=== PATIENT | male | born 1985 | race Two or more races ===

== ENCOUNTER 2020-06-13 07:48 | Emergency (ER) | payer MEDICAID, SELFPAY ==
[2020-06-13 07:49] VITALS: BP 123/92; PULSE 108; RESP 16; TEMP 36.8; O2SAT 98; BMI 26.6
--- NOTE | 2020-06-13 08:29 | ED_ITS ---
HPI - Abdominal Pain General Chief Complaint: Abdominal Pain Stated Complaint: abd pain Time Seen by Provider: 06/13/20 08:25 Source: patient Mode of arrival: ambulatory Limitations: no limitations History of Present Illness HPI narrative: 34-year-old male previously healthy here with epigastric pain and burning with associated belching which occurred after eating for the last month. Patient tells me he often eats late at night before going to bed. He puts hot sauce on everything. Next to his bed he normally has 2-3 bags of snacks for in the night when he wakes up and he is hungry. He smokes cigarettes. He drinks alcohol 5-6 times per week. Today he had some nausea when he woke up and he tells me he gagged some blood-streaked emesis, small amount. No additional episodes. This has never happened to him before. He denies any bloody or black stools. MD elicited complaint: abdominal pain Onset (ago): month(s) Pain Consistency: intermittent Location: epigastric Severity: mild Quality: burning Radiation: none Migration to: no migration Exacerbating factors: nothing Relieving factors: nothing Associated symptoms: denies other symptoms Related Data Previous Rx's Medication Instructions Recorded omeprazole 40 mg PO DAILY #30 cap 06/13/20 Allergies Allergy/AdvReac Type Severity Reaction Status Date / Time No Known Allergies Allergy Unverified 02/19/20 15:39 Review of Systems Review of Systems Yes all other systems are reviewed and are negative Constitutional: Reports no additional constitutional complaints, Denies body ache(s), Denies chills, Denies fever(s), Denies headache(s) and Denies weakness Eyes: Reports no additional eye complaints and Denies change in vision Reports system reviewed and no additional complaints, except as documented, Denies dizziness, Denies headache(s), Denies nasal congestion, Denies nasal discharge and Denies neck pain Cardiovascular: Reports no additional cardiovascular complaints, Denies chest pain, Denies leg edema and Denies dyspnea Respiratory: Reports no additional respiratory complaints, Denies cough and Denies dyspnea Gastrointestinal: Reports no additional gastrointestinal complaints, Reports abdominal pain, Reports belching, Denies hematochezia, Denies coffee ground emesis, Denies diarrhea, Reports nausea (x1) and Reports vomiting (x1) Genitourinary: Denies urinary incontinence Musculoskeletal: Reports no additional musculoskeletal complaints, Denies back pain, Denies arthralgias, Denies joint swelling, Denies neck pain, Denies numbness and Denies tingling Skin/Breast: Reports system reviewed and no additional complaints, except as docu and Denies rash Reports system reviewed and no additional complaints, except as documented, Denies Abnormal speech present, Denies dizziness, Denies headache(s), Denies numbness, Denies tingling and Denies weakness Physical Exam Vital Signs: Vital Signs: Last Vital Signs Temp 98.2 F 06/13/20 07:49 Pulse 108 H 06/13/20 07:49 Resp 16 06/13/20 07:49 BP 123/92 H 06/13/20 07:49 Pulse Ox 98 06/13/20 07:49 Body Mass Index 26.6 Const: General: cooperative, healthy appearing, comfortable and no acute distress Orientation/consciousness: patient oriented x3 Limitations: no limitations HENMT: Head: Yes normal to inspection Ears: hearing grossly normal bilaterally General nose exam: Normal external nose present Face and sinus: Yes normal facial exam Mouth: Normal oral and palatal mucosa present Throat: Yes posterior oropharynx normal Eyes: General: appearance normal, both eyes and all related structures Pupils: Equal, round and reactive pupils present Neck: Neck: Yes normal visual inspection Chest: Chest palpation & inspection: normal inspection of the chest Resp: Effort & Inspection: normal respiratory effort Auscultation: clear to auscultation bilaterally Cardio: Rate: regular rate Rhythm: regular rhythm Peripheral pulses: Pe ripheral pulses 2+ throughout GI: Inspection: Yes normal to inspection Palpation (GI): Soft to palpation and nontender Auscultation: normal bowel sounds Back/Spine/Pelvis: Thoracic/Lumbar Spine: thoracic and lumbar spine normal to inspection Skin: General skin exam: no rashes or lesions noted Neuro: General: patient oriented x3, no focal motor deficits and normal sensation to monofilament Cranial nerves: Yes Equal, round and reactive pupils present Cognition (Neuro): normal cognition Speech: No Abnormal speech present Gait exam (Neuro): Normal gait present Motor exam (neuro): 5/5 motor strength present throughout Extrem: General: Yes normal to inspection Course Course Course Narrative: 34-year-old male here with epigastric burning and belching w hich occurs for the last month after eating. It seems the patient has very bad eating habits, eats late at night, eats before going to bed, snacks frequently throughout the night while lying in bed, smokes cigarettes and drinks alcohol. No abdominal pain on exam. Well appearing, stable vital signs. Exam is more consistent with GERD. He did have 1 episode of blood-streaked vomit which occurred the last 24 hours. No additional episodes. No black or bloody stools. Likely a component of gastritis. Offered rectal exam. Patient declined. Will give GI cocktail and re-assess. 0950-patient is feeling improved, symptoms are resolved. No additional episodes here. Low concern for upper GI bleed with no continued symptoms. Sounds more like gastritis with underlying GERD. Reviewed worrisome signs and symptoms of when to return to the emergency department. Comfortable discharge home. Discharge Plan Discharge Clinical Impression: GERD (gastroesophageal reflux disease), Gastritis Patient Disposition: Home, Self-Care Instructions: Gastritis (ED), Gastroesophageal Reflux Disease (ED) Additional Instructions: TRY TO STOP SMOKING AND LIMIT ALCOHOL. Limit late night snacking, do not eat for 1 hr prior to sleeping, do not lay down for 30 minutes after eating. Avoid spicy, greasy, fatty foods. We are going to start you on prilosec. Prilosec is like putting a bandaid on a problem. Making lifestyle changes will stop the problem. If no improvement after being on prilosec for 1 month follow-up with GI for an appointment. I have attached the number. Return for severe abdominal pain, 2 or more episodes of bright red vomit or coffee colored vomit, black or bloody stool, fever >100.4 Prescriptions: New omeprazole 40 mg capsule,delayed release(DR/EC) 40 mg PO DAILY Qty: 30 RF: 0 Referrals: Kay Smith MD [Physician] - 07/14/20 Interventions: ED Discharge Assessment Last Done: 06/13/20 10:20 Discharge Date/Time: 06/13/20 10:20 [facility] Past Medical History Attestation statement: The following information was validated with the patient. Source: old records reviewed and nursing notes reviewed Medical History No known health problems Social History Social History Advance Directives: No Advance Directives Information Provided: No
[2020-06-13] MEDS: Lidocaine HCl Viscous 2 % 15 ML SOLUTION MUCOUS MEM (09:02)
[2020-06-13] MEDS: Magnesium Hydrox/Alum Hydrox 30 ML ORAL.SUSP PO (09:02)
== END 2020-06-13 10:20 | disposition home or self-care (01) ==
PROVIDERS: Emergency Provider Emergency Medicine
DX: K21.9 Gastro-esophageal reflux disease without esophagitis (principal); R10.13 Epigastric pain; F17.200 Nicotine dependence, unspecified, uncomplicated; Z71.6 Tobacco abuse counseling; Z79.899 Other long term (current) drug therapy
CPT/HCPCS: 99283

== ENCOUNTER 2020-09-09 12:27 | Outpatient (REF) | payer MEDICAID, SELFPAY ==
[2020-09-09 13:06] LABS: COVID-19 Test Negative (Negative)
== END 2020-09-09 12:28 | disposition home or self-care (01) ==
LOC: HO.LAB 12:27
PROVIDERS: Visit Provider Internal Medicine
DX: Z20.822 Contact with and (suspected) exposure to COVID-19 (principal)
CPT/HCPCS: 36415; 87635; C9803

== ENCOUNTER 2020-09-18 04:41 | Emergency (ER) | payer MEDICAID, SELFPAY ==
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
[2020-09-18 04:51] VITALS: BP 110/73; PULSE 101; RESP 16; TEMP 37.1; O2SAT 97; BMI 23.5
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
[2020-09-18] MEDS: Diphth,Pertus(ACell),Tet Adult 0.5 ML SYRINGE IM (05:10)
--- NOTE | 2020-09-18 06:33 | PC.NURSE ---
PATIENT ELOPING FROM THE EMERGENCY DEPARTMENT FOLLOWED BY GIRLFRIEND. LETS FUCKING GO WAS WHAT THE GIRLFRIEND STATED UPON THEIR DEPARTURE. PATIENT WAS AMBULATING STEADILY. NOT WANTING TO STAY TO SEE THE MD FOR STITCHES. REFUSING FURTHER TREATMENT.
== END 2020-09-18 06:00 | disposition left against medical advice (07) ==
PROVIDERS: Emergency Provider Emergency Medicine
DX: S02.2XXA Fracture of nasal bones, initial encounter for closed fracture (principal); S01.412A Laceration without foreign body of left cheek and temporomandibular area, initial encounter; Y04.2XXA Assault by strike against or bumped into by another person, initial encounter; Y93.01 Activity, walking, marching and hiking; Y92.480 Sidewalk as the place of occurrence of the external cause; Y99.9 Unspecified external cause status; F12.90 Cannabis use, unspecified, uncomplicated
CPT/HCPCS: 70450; 70486; 72125; 90471; 90715; 99284

== ENCOUNTER 2020-10-04 13:27 | Outpatient (REF) | payer MEDICAID, SELFPAY ==
[2020-10-04 14:45] LABS: COVID-19 Test Negative (Negative)
== END 2020-10-04 13:28 | disposition home or self-care (01) ==
LOC: HO.LAB 13:27
PROVIDERS: Visit Provider Internal Medicine
DX: Z20.822 Contact with and (suspected) exposure to COVID-19 (principal)
CPT/HCPCS: 36415; 87635; C9803

== ENCOUNTER 2020-11-11 18:10 | Emergency (ER) | payer MEDICAID, SELFPAY ==
[2020-11-11 18:26] VITALS: BP 136/86; BP 158/100; PULSE 104; PULSE 98; RESP 18; O2SAT 98; O2SAT 99; BMI 52.9
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
== END 2020-11-11 19:41 | disposition home or self-care (01) ==
PROVIDERS: Emergency Provider Emergency Medicine
DX: F16.10 Hallucinogen abuse, uncomplicated (principal)
CPT/HCPCS: 99283

== ENCOUNTER 2020-12-16 03:41 | Emergency (ER) | payer MEDICAID, SELFPAY ==
[2020-12-16 03:51] VITALS: BP 119/80; BP 120/76; PULSE 70; PULSE 77; RESP 18; TEMP 36.8; O2SAT 94; O2SAT 97; BMI 23.5
--- NOTE | 2020-12-16 04:27 | ED.ALCOHOL ---
HPI - Alcohol General Chief Complaint: Skin/Abscess/Foreign Body Stated Complaint: ETOH/ABD pain Time Seen by Provider: 12/16/20 04:27 Source: patient Mode of arrival: EMS History of Present Illness HPI narrative: Is a 35-year-old male who is brought in by EMS after he called 911 from his bed and states that he is concerned about a small red bump on the lower left portion of his abdomen without associated nausea, vomiting, diarrhea, urinary symptoms. Patient states that he is been drinking alcohol as well as smoking marijuana. Otherwise, he denies any fever, chills, nausea, vomiting, shortness of breath/chest pain/palpitations. Related Data Previous Rx's Medication Instructions Recorded omeprazole 40 mg PO DAILY #30 cap 06/13/20 Allergies Allergy/AdvReac Type Severity Reaction Status Date / Time No Known Allergies Allergy Verified 12/16/20 03:55 Review of Systems Review of Systems: Pertinent positives and negatives as stated in HPI 10 point review of systems is otherwise negative. PMFSH Past Medical History Source: nursing notes reviewed Medical History No known health problems Social History Social History Alcohol intake: current Alcohol intake frequency: a few times a week Alcohol type: hard liquor Substance Use Type: Marijuana Advance Directives: No Advance Directives Information Provided: No Physical Exam Vital Signs: Vital Signs: Last Vital Signs Temp 98.3 F 12/16/20 03:51 Pulse 77 12/16/20 03:51 Resp 18 12/16/20 03:51 BP 119/80 12/16/20 03:51 Pulse Ox 94 12/16/20 03:51 Body Mass Index 23.5 VITAL SIGNS: Reviewed. GENERAL: Well developed, well nourished, appears to be intoxicated. HEAD: Normocephalic/atraumatic EYES: PERRLA, EOMI OROPHARYNX: no oral lesions noted, posterior pharynx clear LUNGS: Normal breath sounds. No adventitious sounds or accessory muscle use. SpO2<94> CARDIOVASCULAR: Regular rate and rhythm without noted murmurs ABDOMEN: Soft, non-tender, non-distended with bowel sounds, no noted insect bite to abdominal wall. SKIN: Inspection of the skin reveals no rashes NEUROLOGIC: Alert and oriented x 4. Course Course Course Narrative: 35-year-old male with history and clinical presentation consistent with alcohol intoxication and suspect additional illicit drug use, declining any lab work or urinalysis at this time for further evaluation of his stated complaint abdominal discomfort. Informed by nursing the patient eloped. MDM - Alcohol Lab Data Labs: Lab Results 12/16/20 12/16/20 Range/Units 04:05 04:53 POC Glucose 84 (60-115) mg/dL Ethyl Alcohol 98 mg/dL Discharge Plan Discharge Clinical Impression: Alcohol intoxication, Abdominal discomfort Patient Disposition: Elopement Prescriptions: No Action omeprazole 40 mg capsule,delayed release(DR/EC) 40 mg PO DAILY Qty: 30 RF: 0 Interventions: ED Discharge Assessment Last Done: 12/16/20 05:28 Discharge Date/Time: 12/16/20 05:29
[2020-12-16 04:38] LABS: Ethanol 98 mg/dL
--- NOTE | 2020-12-16 04:56 | PC.NURSE ---
Patient offered but refused oral fluids. Will offer PO fluids and attempt to obtain a urine specimen at a later time. aware. POC Glucose 84 as requested by . Will continue to monitor.
[2020-12-16 04:58] LABS: Glucose, Whole Blood 84 mg/dL (60-115)
--- NOTE | 2020-12-16 05:21 | PC.NURSE ---
Patient now reports general left sided abdominal pain. When asked to describe pain and location, pt stated my insides are in pain . present during this statement. Pt states that he is unable to provide a urine specimen at this time, but continues to refuse all offered beverages. aware. Upon abdominal assessment/palpation, no wincing or facial grimacing noted. Pt is calm/cooperative, but stating I don't want to waste any of your time, I think I'm just gonna go home . Encouraged to stay in ED and agrees to stay for monitoring at this time. Will continue to monitor.
--- NOTE | 2020-12-16 05:28 | PC.NURSE ---
Patient eloped from ED. caddy packer (Jennifer) & aware.
== END 2020-12-16 05:29 | disposition left against medical advice (07) ==
PROVIDERS: Emergency Provider Student in an Organized Health Care Education/Training Program
DX: R10.9 Unspecified abdominal pain (principal); F10.129 Alcohol abuse with intoxication, unspecified; Y90.4 Blood alcohol level of 80-99 mg/100 ml; F12.90 Cannabis use, unspecified, uncomplicated
CPT/HCPCS: 36415; 82077; 82947; 99283

== ENCOUNTER 2021-03-05 20:28 | Emergency (ER) | payer MEDICAID, SELFPAY ==
[2021-03-05 20:40] VITALS: BP 120/74; PULSE 96; RESP 16; TEMP 37.2; O2SAT 95; BMI 23.3
--- NOTE | 2021-03-05 21:35 | ED.MALEGU ---
HPI - Male Genitourinary General Chief complaint: Urogenital-Male Stated complaint: ?STD Source: patient Mode of arrival: ambulatory Limitations: no limitations History of Present Illness HPI Narrative: Patient reports dysuria after new sexual partner. States that he has penile discharge and burning on urination. Complaint: penile discharge and dysuria Onset (ago): day(s) Duration: constant Location: penis Radiation: penis Severity: moderate Severity scale (1-10): 7 Quality: burning Relieving factors: none Exacerbating factors: urination Context: new sexual partner Associated symptoms: Reports discharge Related Data Sexually active: Yes Previous Rx's Medication Instructions Recorded omeprazole 40 mg capsule,delayed 40 mg PO DAILY #30 cap 06/13/20 release Allergies Allergy/AdvReac Type Severity Reaction Status Date / Time No Known Allergies Allergy Verified 12/16/20 03:55 Review of Systems Review of Systems: Constitutional: No Fever, No Chills ENT/Mouth: No Ear Pain, No Hoarseness, No sore throat Eyes: No Eye Pain, No Swelling, No Redness, No Foreign Body Cardiovascular: No Chest Pain, No SOB Respiratory: No Cough, No Dyspnea Gastrointestinal: No Nausea, No Vomiting, No Diarrhea, No abdominal Pain Genitourinary: Positive penile discharge, Positive Dysuria, No Hematuria Musculoskeletal: No joint pain, No Myalgias, No Joint Swelling Skin: No Skin lacerations, No rash Neuro: No Weakness, No Numbness, No Paresthesias, No Loss of Consciousness, No Dizziness, No Headache Psych: No Anxiety/Panic, No Depression Heme/Lymph: no easy bruising, no Lymphadenopathy Endocrine: No Polyuria, No Polydipsia Yes all other systems are reviewed and are negative [facility] Past Medical History Attestation statement: The following information was validated with the patient. Source: old records reviewed Medical History No known health problems Social History Social History Alcohol intake: current Alcohol intake frequency: a few times a week Alcohol type: hard liquor Substance Use Type: Marijuana Advance Directives: No Advance Directives Information Provided: No Physical Exam Vital Signs: Vital Signs: Last Vital Signs Temp 99.0 F 03/05/21 20:40 Pulse 96 03/05/21 20:40 Resp 16 03/05/21 20:40 BP 120/74 03/05/21 20:40 Pulse Ox 95 03/05/21 20:40 Body Mass Index 23.3 Appearance: Alert. Oriented X3. No acute distress. Eyes: Pupils equal, round and reactive to light. ENT: Pharynx normal. Neck: Normal inspection. Neck supple. CVS: Normal heart rate and rhythm. Pulses normal. Respiratory: No respiratory distress. Breath sounds normal. Abdomen: Soft and nontender. Skin: Skin warm and dry. Normal skin color. Normal skin turgor. Extremities: No lower extremity edema. Neuro: No motor deficit. No sensory deficit. : Male General Exam: Yes normal external exam and No Genital lesions present Penis: normal penis, circumcised, not erythematous, no vesicles, no paraphimosis, no phimosis, no ulcerations and No Genital lesions present Meatus: meatal discharge Scrotum: scrotum normal Testes: Testes normal Course Course Course Narrative: Patient presents with dysuria and penile discharge. Will treat with azithromycin and ceftriaxone. Patient understands that he must inform partners and he was treated for STI. Patient verbalized understanding of and agrees to plan of care discharge home. MDM - Male Genitourinary MDM Narrative Medical decision making narrative: STI Differential Diagnosis Differential diagnosis: Likely urinary tract infection and epididymitis Medical Records Attestation: I reviewed the patient's medical records. Lab Data Attestation: I reviewed the patient's lab results. Discharge Plan Discharge Clinical Impression: Sexually transmitted disease Patient Disposition: Home, Self-Care Instructions: Sexually Transmitted Diseases (ED), Male Condom Use (ED) Additional Instructions: You were treated for chlamydia and gonorrhea. Please inform your partners that you were treated for sexually transmitted infection. Abstain from sexual activity for the next 2 weeks or until you have no symptoms. Thank you for choosing this emergency department for evaluation. Please follow-up with primary care physician as needed. Return to the emergency department for any new, concerning, or worsening symptoms. Prescriptions: No Action omeprazole 40 mg capsule,delayed release(DR/EC) 40 mg PO DAILY Qty: 30 RF: 0 Interventions: ED Discharge Assessment Last Done: 03/05/21 22:46 Discharge Date/Time: 03/05/21 22:47
[2021-03-05] MEDS: cefTRIAXone sodium 500 MG, Lidocaine HCl 1 % MPF 1 ML IM (22:40)
[2021-03-05] MEDS: Azithromycin 500 MG TABLET 1000 MG PO (22:40)
[2021-03-06 05:33] LABS: CT PCR NOT DETECTED (Not Detect.); NG PCR NOT DETECTED (Not Detect.)
== END 2021-03-05 22:47 | disposition home or self-care (01) ==
PROVIDERS: Emergency Provider Internal Medicine
DX: R30.0 Dysuria (principal); R36.9 Urethral discharge, unspecified; F12.90 Cannabis use, unspecified, uncomplicated; Z20.2 Contact with and (suspected) exposure to infections with a predominantly sexual mode of transmission; Z79.899 Other long term (current) drug therapy
CPT/HCPCS: 87086; 87491; 87591; 96372; 99284; J0696

== ENCOUNTER 2022-03-28 04:16 | Emergency (ER) | payer MEDICAID, SELFPAY ==
[2022-03-28 04:41] VITALS: BP 142/92; PULSE 69; RESP 15; TEMP 36.5; O2SAT 98; BMI 25.0
--- NOTE | 2022-03-28 04:46 | ED_ITS ---
HPI - Abdominal Pain General Chief Complaint: Abdominal Pain Stated Complaint: abd pain Time Seen by Provider: 03/28/22 04:45 Source: patient Mode of arrival: ambulatory Limitations: no limitations History of Present Illness HPI narrative: Patient' with history of gastritis for long time comes here for epigastric pain which is going on for a long time got worse last few days vomiting no nausea no black stools at this time patient does not have much pain patient taking Tums at home with partial relief no radiation of pain no back patient has never seen a [employer] never had endoscopy done Related Data Previous Rx's Medication Instructions Recorded omeprazole 40 mg capsule,delayed 40 mg PO DAILY #30 caps 06/13/20 release pantoprazole 40 mg tablet,delayed 40 mg PO DAILY #30 tabs 03/28/22 release (Protonix) sucralfate 1 gram tablet 1 g PO TID #90 tabs 03/28/22 Allergies Allergy/AdvReac Type Severity Reaction Status Date / Time No Known Allergies Allergy Verified 12/16/20 03:55 Review of Systems Review of Systems Yes all other systems are reviewed and are negative [facility] Past Medical History Medical History No known health problems Social History Social History Alcohol intake: current Alcohol intake frequency: holidays/special occasions only Alcohol type: hard liquor Patient Tobacco Use Status: Current everyday Tobacco user Smoked in Last 30 Days: Yes Use of substances other than those prescribed or required for medical reasons: Yes Substance Use Type: Crack/Cocaine and Hallucinogens Advance Directives: No Physical Exam ED Vital Signs: Vital Signs - 24 hr 03/28/22 04:41 Temperature 97.7 F Pulse Rate 69 Respiratory Rate 15 Blood Pressure 142/92 H Pulse Oximetry 98 Oxygen Delivery Method Room Air BMI result Body Mass Index 25.0 Appearance: Alert. Oriented X3. No acute distress. Eyes: PERRLA, No Nystagmus ENT: Pharynx normal. Oral Mucosa moist Neck: Normal inspection. Neck supple. CVS: Normal heart rate and rhythm. Pulses normal. Respiratory: No respiratory distress. Equal air entry bilateral, no wheezing/rales/rhonchi Abdomen: Soft mild epigastric tenderness. Bowel sounds are present, no mass palpable, no CVA tenderness Skin: Skin warm and dry. Normal skin color. Normal skin turgor. Extremities: No lower extremity edema. No calf tenderness Neuro: Oriented X 3. MDM - Abdominal Pain MDM Narrative Medical decision making narrative: Patient with chronic gastritis will discharge patient home on PPI advised to follow with [employer] for endoscopy, patient requested STD test although no discharge at this time and does not want any medications Lab Data Attestation: I reviewed the patient's lab results. Result diagrams: 03/28/22 04:50 03/28/22 04:50 Labs: Lab Results 03/28/22 03/28/22 Range/Units 04:50 04:50 WBC 9.6 (4.8-10.8) X10*3/uL RBC 4.97 (4.60-5.80) X10*6/uL Hgb 15.4 (14.0-18.0) g/dl Hct 44.1 (42.0-52.0) % MCV 88.7 (80.0-98.0) fL MCH 31.0 (27.0-33.0) pg MCHC 34.9 (31.0-36.0) g/dl RDW 12.3 (11.0-16.0) % Plt Count 303 (160-400) X10*3/uL MPV 10.4 (9.4-12.4) fL Absolute Nucleated RBC 0.000 (0.0-0.012) X10*3/uL Nucleated RBC % (auto) 0.0 (0.0-0.2) /100WBC Sodium 142 (135-145) mmol/L Potassium 3.8 (3.3-5.1) mmol/L Chloride 104 (96-108) mmol/L Carbon Dioxide 26 (22-29) mmol/L Anion Gap 16 (12-20) BUN 11 (9-16) mg/dL Creatinine 1.24 (0.5-1.4) mg/dL Estim Creat Clear Calc 72.3 Estimated GFR > 60 Random Glucose 111 (60-115) mg/dL Calcium 10.1 (8.4-10.2) mg/dL Total Bilirubin 0.5 (0.0-1.0) mg/dL Direct Bilirubin 0.2 (0.0-0.5) mg/dL AST 20 (5-37) U/L ALT 17 (0-40) U/L Alkaline Phosphatase 66 (39-117) U/L Total Protein 8.1 H (6.5-8.0) g/dL Albumin 4.7 (3.5-5.0) g/dL Lipase 44 (8-78) U/L Discharge Plan Discharge Clinical Impression: Gastritis Patient Disposition: Home, Self-Care Instructions: Gastritis (ED) Additional Instructions: Stop smoking and drinking start taking medication for gastritis and follow up with [employer] Prescriptions: New pantoprazole [Protonix] 40 mg tablet,delayed release (DR/EC) 40 mg PO DAILY Qty: 30 2RF sucralfate 1 gram tablet 1 g PO TID Qty: 90 2RF No Action omeprazole 40 mg capsule,delayed release(DR/EC) 40 mg PO DAILY Qty: 30 0RF Referrals: Benito Barbosa [Physician] -
[2022-03-28 04:55] LABS: Hematocrit 44.1 % (42.0-52.0); Hemoglobin 15.4 g/dl (14.0-18.0); Mean Corpuscular HGB Conc 34.9 g/dl (31.0-36.0); Mean Corpuscular Volume 88.7 fL (80.0-98.0); Mean Platelet Volume 10.4 fL (9.4-12.4); Platelet Count 303 X10*3/uL (160-400); Red Blood Count 4.97 X10*6/uL (4.60-5.80); Red Cell Distribution Width 12.3 % (11.0-16.0); White Blood Count 9.6 X10*3/uL (4.8-10.8)
--- NOTE | 2022-03-28 05:00 | PC.NURSE ---
pt brought back to rm 2. partner at bedside. IV placed. current labs drawn at this time
[2022-03-28 05:11] LABS: Alanine Aminotransferase 17 U/L (0-40); Albumin Level 4.7 g/dL (3.5-5.0); Alkaline Phosphatase 66 U/L (39-117); Anion Gap 16 (12-20); Aspartate Amino Transferase 20 U/L (5-37); Bilirubin Direct 0.2 mg/dL (0.0-0.5); Bilirubin Total 0.5 mg/dL (0.0-1.0); Blood Urea Nitrogen 11 mg/dL (9-16); Calcium 10.1 mg/dL (8.4-10.2); Carbon Dioxide 26 mmol/L (22-29); Chloride 104 mmol/L (96-108); Creatinine Clr Calc Pharmacy 72.3; Estimated Glomerular Filt Rate > 60; Glucose Random 111 mg/dL (60-115); Lipase 44 U/L (8-78); Potassium 3.8 mmol/L (3.3-5.1); Sodium 142 mmol/L (135-145); Total Protein 8.1 g/dL (6.5-8.0)
[2022-03-28] MEDS: Magnesium Hydrox/Alum Hydrox 30 ML ORAL.SUSP PO (06:02)
[2022-03-28] MEDS: Famotidine/PF 20 MG/2 ML VIAL IVPUSH (06:02)
[2022-03-28 10:50] LABS: CT PCR NOT DETECTED (Not Detect.); NG PCR NOT DETECTED (Not Detect.)
== END 2022-03-28 06:52 | disposition home or self-care (01) ==
PROVIDERS: Emergency Provider Internal Medicine
DX: K29.00 Acute gastritis without bleeding (principal); R10.13 Epigastric pain; F17.200 Nicotine dependence, unspecified, uncomplicated; Z71.6 Tobacco abuse counseling; Z79.899 Other long term (current) drug therapy
CPT/HCPCS: 36415; 80053; 82248; 83690; 85027; 87491; 87591; 96374; 99284

== ENCOUNTER 2022-07-04 11:58 | Emergency (ER) | payer MEDICAID, SELFPAY ==
--- NOTE | ~2022-07-04 | CT_ITS ---
EXAMINATION: NONCONTRAST HEAD CT NONCONTRAST CERVICAL SPINE CT INDICATION INFORMATION: Syncope COMPARISON: 09/18/2020 TECHNIQUE: Separate noncontrast CT examinations of the head and cervical spine were performed. Coronal and sagittal images were created for each examination at the technologist workstation. This CT examination was performed using dose optimization techniques as appropriate, variously including the following: *Automated exposure control *Adjustment of mA and/or kV according to patient size (this includes techniques or standardized protocols for targeted exams where dose is matched to indication/reason for exam; i.e. extremities or head) *Use of iterative reconstruction technique DLP: 1372 mGy-cm FINDINGS: Head: There is no evidence of acute intracranial hemorrhage or territorial infarction. No abnormal mass effect or midline shift is seen. G[place]vara to white matter differentiation is well preserved. No extra-axial fluid collections are identified. No hydrocephalus. No significant volume loss. There is no abnormal attenuation within the brain parenchyma. No acute osseous or soft tissue abnormality. The mastoid air cells and visualized portions of the paranasal sinuses are well aerated. Cervical spine: There is anatomic alignment of the vertebral bodies and posterior elements. The atlantoaxial and atlantooccipital articulations are intact. Vertebral body heights and intervertebral disc spaces are maintained. No evidence of acute fracture. No prevertebral soft tissue swelling. Visualized portions of the lung apices are unremarkable. The thyroid gland is unremarkable. CT/CT head/brain wo IV con IMPRESSION: * No acute intracranial bleed or territorial infarction. * No acute fracture or malalignment of the cervical spine.
--- NOTE | ~2022-07-04 | CT_ITS ---
EXAMINATION: CT CHEST WITHOUT CONTRAST CLINICAL INFORMATION: Shortness of breath COMPARISON: None TECHNIQUE: Multidetector volumetric CT imaging of the chest was done. Axial MIP volume rendering provided. Sagittal and coronal reformatted images were obtained. This CT examination was performed using dose optimization techniques as appropriate, variously including the following: *Automated exposure control *Adjustment of mA and/or kV according to patient size (this includes techniques or standardized protocols for targeted exams where dose is matched to indication/reason for exam; i.e. extremities or head) *Use of iterative reconstruction technique DLP: 240.69+4.87 mGy-cm FINDINGS: LUNGS: Multifocal hazy patchy groundglass opacities in the dependent lung, both lower lobes. This is concerning for atypical pneumonia. No dense consolidation or bronchograms. No bronchiectasis. Central bronchial airways are open. MEDIASTINUM: No mediastinal mass or significant lymphadenopathy. No pericardial effusion. Heart size is normal. Thoracic aorta is normal. CORONARY ARTERY CALCIFICATION: None visualized on this study. PLEURA: There is no pleural effusion. No pleural mass or thickening. AXILLA: No lymphadenopathy. UPPER ABDOMEN: Unremarkable. OSSEOUS STRUCTURES: Multilevel degenerative spondylosis spine. CT/CT chest wo IV con IMPRESSION: Multifocal hazy patchy groundglass opacities in the dependent lung, both lower lobes. This is concerning for atypical pneumonia. Fleischner guidelines were followed.
--- NOTE | ~2022-07-04 | CT_ITS ---
EXAMINATION: NONCONTRAST HEAD CT NONCONTRAST CERVICAL SPINE CT INDICATION INFORMATION: Syncope COMPARISON: 09/18/2020 TECHNIQUE: Separate noncontrast CT examinations of the head and cervical spine were performed. Coronal and sagittal images were created for each examination at the technologist workstation. This CT examination was performed using dose optimization techniques as appropriate, variously including the following: *Automated exposure control *Adjustment of mA and/or kV according to patient size (this includes techniques or standardized protocols for targeted exams where dose is matched to indication/reason for exam; i.e. extremities or head) *Use of iterative reconstruction technique DLP: 1372 mGy-cm FINDINGS: Head: There is no evidence of acute intracranial hemorrhage or territorial infarction. No abnormal mass effect or midline shift is seen. Guevara to white matter differentiation is well preserved. No extra-axial fluid collections are identified. No hydrocephalus. No significant volume loss. There is no abnormal attenuation within the brain parenchyma. No acute osseous or soft tissue abnormality. The mastoid air cells and visualized portions of the paranasal sinuses are well aerated. Cervical spine: There is anatomic alignment of the vertebral bodies and posterior elements. The atlantoaxial and atlantooccipital articulations are intact. Vertebral body heights and intervertebral disc spaces are maintained. No evidence of acute fracture. No prevertebral soft tissue swelling. Visualized portions of the lung apices are unremarkable. The thyroid gland is unremarkable. CT/CT cervical spine wo IV con IMPRESSION: * No acute intracranial bleed or territorial infarction. * No acute fracture or malalignment of the cervical spine.
[2022-07-04 12:08] VITALS: BP 134/95; PULSE 119; RESP 27; TEMP 36.5; O2SAT 93; BMI 25.9
[2022-07-04 12:12] LABS: Glucose, Whole Blood 208 mg/dL (60-115)
--- NOTE | 2022-07-04 13:58 | ED_ITS ---
HPI - Overdose General Chief Complaint: Overdose Stated Complaint: OD,NARCAN GIVEN W/GOOD RESULT,RESTRAINED,+CCOLLAR Time Seen by Provider: 07/04/22 13:03 Source: patient Mode of arrival: EMS History of Present Illness HPI Narrative: 37-year-old male brought in by EMS after his family heard ?a thud in the patient's bedroom? and found the patient laying on the ground, unconscious, with pinpoint pupils. Patient was given 2 mg IV Narcan, vomited once in there are concerns for possible aspiration. Patient became aggressive and was restrained, security found 7 full tin bags of heroin and 3 empty. Patient was placed in a C-collar. The history provided by the patient is that he does not recall any of the activities, he adamantly denies any drug use and appears to be surprised that he was found unconscious. Patient denies any current pain, shortness of breath, chest pain. Patient denies attempts to commit suicide. Related Data Previous Rx's Medication Instructions Recorded omeprazole 40 mg capsule,delayed 40 mg PO DAILY #30 caps 06/13/20 release pantoprazole 40 mg tablet,delayed 40 mg PO DAILY #30 tabs 03/28/22 release (Protonix) sucralfate 1 gram tablet 1 g PO TID #90 tabs 03/28/22 doxycycline hyclate 100 mg tablet 100 mg PO BID 5 days #10 tabs 07/04/22 Allergies Allergy/AdvReac Type Severity Reaction Status Date / Time No Known Allergies Allergy Verified 12/16/20 03:55 Review of Systems Review of Systems: Pertinent positives and negatives as stated in HPI [facility] Past Medical History Source: nursing notes reviewed Medical History No known health problems Social History Social History Alcohol intake: current Alcohol intake frequency: holidays/special occasions only Alcohol type: hard liquor Patient Tobacco Use Status: Current everyday Tobacco user Substance Use Type: Crack/Cocaine and Hallucinogens Advance Directives: No Advance Directives Information Provided: No Physical Exam Vital Signs: Vital Signs: Last Vital Signs Temp 97.7 F 07/04/22 12:08 Pulse 119 H 07/04/22 12:08 Resp 27 H 07/04/22 12:08 BP 134/95 H 07/04/22 12:08 Pulse Ox 93 07/04/22 12:08 O2 Del Method 07/04/22 12:08 Oxygen Flow Rate 2 07/04/22 12:08 BMI result Body Mass Index 25.9 VITAL SIGNS: Reviewed. GENERAL: Well developed, well nourished, in no acute distress. HEAD: Normocephalic/atraumatic EYES: PERRLA, EOMI, pinpoint pupils EARS: Ext canals without abnormality OROPHARYNX: no oral lesions noted, posterior pharynx clear and non-erythematous without noted tonsillar enlargement/erythema/exudates NECK: C-collar in place, no adenopathy, no midline cervical spine tenderness LUNGS: Normal breath sounds. No adventitious sounds or accessory muscle use. SpO2<93> CARDIOVASCULAR: Regular rate and rhythm without noted murmurs ABDOMEN: Soft, non-tender, non-distended with bowel sounds. MUSCULOSKELETAL: No tenderness, deformities, or effusions noted on gross inspection. EXTREMITIES: No cyanosis, clubbing or edema. SKIN: Inspection of the skin reveals no rashes NEUROLOGIC: Alert and oriented x 3. Strength and sensation to light touch were grossly intact x 4. Medications Administered Discontinued Medications Generic Name Dose Route Start Last Admin Trade Name Freq PRN Reason Stop Dose Admin Naloxone HCl 4 mg 07/04/22 14:02 07/04/22 15:25 Naloxone Hcl Nasal Take Home 4 Mg [place] NOSTRILALT 07/04/22 14:03 4 mg ONCE ONE Administration Medical Decision Making Medical Decision Making MDM Narrative: 37-year-old male with overdose and unconscious secondary to the overdose in suspicion for aspiration. Will proceed with basic labs and imaging studies. Home Narcan was ordered. 1426: Patient has removed his IV, is verbally aggressive, security is at bedside, accusing staff of taking his clothing, continuing to deny taking any drugs. Patient is also removed his C-collar and appears to be ambulating without difficulty no complaints of head or neck pain, apparently oxygenating well. Patient's family has been contacted. If possible will attempt to proceed with imaging studies, however if patient is resistant he is well within his faculties to declines Services. Patient did stay for entire workup and review of CT imaging demonstrates haziness bibasilar. Although unclear whether not this is related to any aspiration event, patient will be discharged on doxycycline. He is not tachypneic, I do note that he has ALBERT and he was instructed to increase water intake. Patient is also instructed to follow-up with his primary care provider in the next 1-2 days. The leukocytosis is secondary to stress/reactive etiology. Differential Diagnosis Differential Diagnoses: The differential diagnosis associated with the presentation includes Please see discussion above Lab Data MDM Lab Attestation statement: I reviewed the patient's lab results. Please see discussion above 07/04/22 13:49 07/04/22 13:49 Labs: Lab Results 07/04/22 07/04/22 07/04/22 Range/Units 12:08 13:49 13:49 WBC 18.8 H (4.8-10.8) X10*3/uL RBC 4.76 (4.60-5.80) X10*6/uL Hgb 15.0 (14.0-18.0) g/dl Hct 42.1 (42.0-52.0) % MCV 88.4 (80.0-98.0) fL MCH 31.5 (27.0-33.0) pg MCHC 35.6 (31.0-36.0) g/dl RDW 11.9 (11.0-16.0) % Plt Count 306 (160-400) X10*3/uL MPV 9.7 (9.4-12.4) fL Immature Gran % (Auto) 1.0 H (0.0-0.4) % Neut % (Auto) 85.0 H (45-73) % Lymph % (Auto) 4.7 L (20-40) % [place] % (Auto) 9.0 (2-11) % Eos % (Auto) 0.1 (0-4) % Baso % (Auto) 0.2 (0-2) % Lymph # (Auto) 0.9 L (1.2-4.9) X10*3/uL [place] # (Auto) 1.7 H (0.1-1.2) X10*3/uL Eos # (Auto) 0.0 (0.0-0.4) X10*3/uL Baso # (Auto) 0.0 (0.0-0.2) X10*3/uL Abs Immat Gran (auto) 0.18 H (0.00-0.03) X10*3/uL Absolute Neuts (auto) 16.0 H (2.0-8.3) x10*3/uL Absolute Nucleated RBC 0.000 (0.0-0.012) X10*3/uL Nucleated RBC % (auto) 0.0 (0.0-0.2) /100WBC Smear Tech's Comments VERIFIED Sodium 140 (135-145) mmol/L Potassium 4.1 (3.3-5.1) mmol/L Chloride 107 (96-108) mmol/L Carbon Dioxide 25 (22-29) mmol/L Anion Gap 12 (12-20) BUN 19 H (9-16) mg/dL Creatinine 1.41 H (0.5-1.4) mg/dL Estim Creat Clear Calc 60.6 Estimated GFR 57 POC Glucose 208 H (60-115) mg/dL Random Glucose 115 (60-115) mg/dL Calcium 9.2 D (8.4-10.2) mg/dL Total Bilirubin 0.3 (0.0-1.0) mg/dL AST 24 (5-37) U/L ALT 22 (0-40) U/L Alkaline Phosphatase 88 (39-117) U/L Total Protein 7.5 (6.5-8.0) g/dL Albumin 4.4 (3.5-5.0) g/dL Radiology Impression Radiologist Impression: My interpretation is in agreement with radiology's impression of the imaging studies. External Record Review External record reviewed: Outpatient record and Prior outpatient labs Discharge Plan Discharge Clinical Impression: Drug overdose, ALBERT (acute kidney injury), Pneumonia Patient Disposition: Home, Self-Care Instructions: Adult Overdose (ED) Additional Instructions: 1. It is important that you complete the entire course of antibiotics as prescribed. Increase the amount of water that you are drinking. 2. Please follow-up with your primary care doctor in the next 1-2 days. Return to the ER for any worsening symptoms. Prescriptions: New doxycycline hyclate 100 mg tablet 100 mg PO BID 5 Days Qty: 10 0RF No Action omeprazole 40 mg capsule,delayed release(DR/EC) 40 mg PO DAILY Qty: 30 0RF pantoprazole [Protonix] 40 mg tablet,delayed release (DR/EC) 40 mg PO DAILY Qty: 30 2RF sucralfate 1 gram tablet 1 g PO TID Qty: 90 2RF Referrals: [place],[facility] [Primary Care Provider] -
[2022-07-04 14:05] LABS: Basophils Percent Auto 0.2 % (0-2); Eosinophils Percent Auto 0.1 % (0-4); Hematocrit 42.1 % (42.0-52.0); Imm Gran Abs Auto 0.18 X10*3/uL (0.00-0.03); Lymphocytes Absolute Auto 0.9 X10*3/uL (1.2-4.9); Lymphocytes Percent Auto 4.7 % (20-40); MANUAL DIFF FLAG SCAN; Mean Corpuscular HGB Conc 35.6 g/dl (31.0-36.0); Mean Corpuscular Hemoglobin 31.5 pg (27.0-33.0); Mean Corpuscular Volume 88.4 fL (80.0-98.0); Mean Platelet Volume 9.7 fL (9.4-12.4); Monocytes Absolute Auto 1.7 X10*3/uL (0.1-1.2); Platelet Count 306 X10*3/uL (160-400); Red Blood Count 4.76 X10*6/uL (4.60-5.80); Red Cell Distribution Width 11.9 % (11.0-16.0); SCAN SMEAR FLAG 1; White Blood Count 18.8 X10*3/uL (4.8-10.8)
[2022-07-04 14:16] LABS: Alanine Aminotransferase 22 U/L (0-40); Albumin Level 4.4 g/dL (3.5-5.0); Alkaline Phosphatase 88 U/L (39-117); Anion Gap 12 (12-20); Aspartate Amino Transferase 24 U/L (5-37); Bilirubin Total 0.3 mg/dL (0.0-1.0); Blood Urea Nitrogen 19 mg/dL (9-16); Calcium 9.2 mg/dL (8.4-10.2); Carbon Dioxide 25 mmol/L (22-29); Chloride 107 mmol/L (96-108); Creatinine Clr Calc Pharmacy 60.6; Estimated Glomerular Filt Rate 57; Glucose Random 115 mg/dL (60-115); Potassium 4.1 mmol/L (3.3-5.1); Sodium 140 mmol/L (135-145); Total Protein 7.5 g/dL (6.5-8.0)
[2022-07-04 14:26] LABS: SLIDE REVIEW VERIFIED
[2022-07-04] MEDS: Naloxone HCl Nasal TAKE HOME 4 MG SPRAY NOSTRILALT (15:25)
--- NOTE | 2022-07-04 16:29 | MHC.RECOVRN ---
This documentation writer met w/ patient, patient declined SUDE.
== END 2022-07-04 16:08 | disposition home or self-care (01) ==
PROVIDERS: Emergency Provider Student in an Organized Health Care Education/Training Program
DX: T40.1X1A Poisoning by heroin, accidental (unintentional), initial encounter (principal); R40.20 Unspecified coma; N17.9 Acute kidney failure, unspecified; J18.9 Pneumonia, unspecified organism; Y92.013 Bedroom of single-family (private) house as the place of occurrence of the external cause; F17.200 Nicotine dependence, unspecified, uncomplicated; Z79.899 Other long term (current) drug therapy
CPT/HCPCS: 36415; 70450; 71250; 72125; 80053; 82947; 85025; 99283; 99284

== ENCOUNTER 2022-07-20 02:28 | Emergency (ER) | payer MEDICAID, SELFPAY ==
--- NOTE | ~2022-07-20 | CT_ITS ---
EXAMINATION: CT ABDOMEN AND PELVIS WITHOUT CONTRAST CLINICAL INFORMATION: Left lower quadrant pain. COMPARISON: None TECHNIQUE: Multidetector volumetric imaging was performed from the superior aspect of the liver through the pubic symphysis. Sagittal and coronal reformatted images were obtained on the technologist's workstation. This CT examination was performed using dose optimization techniques as appropriate, variously including the following: *Automated exposure control *Adjustment of mA and/or kV according to patient size (this includes techniques or standardized protocols for targeted exams where dose is matched to indication/reason for exam; i.e. extremities or head) *Use of iterative reconstruction technique DLP: 382 mGy-cm FINDINGS: LUNG BASES: Linear left basilar atelectasis. The visualized cardiac structures are unremarkable. LIVER, GALLBLADDER, AND BILIARY TREE: The liver is normal in size, shape, and attenuation. No focal hepatic lesion or biliary ductal dilatation is present. The gallbladder is contracted with no evidence of radiopaque gallstones, gallbladder wall thickening, or obvious pericholecystic inflammatory changes. PANCREAS: Unremarkable. SPLEEN: Unremarkable. ADRENAL GLANDS: Unremarkable. KIDNEYS AND URETERS: The kidneys are normal in size, shape, and attenuation. No hydronephrosis, hydroureter, or calculi seen. No perinephric stranding. BLADDER: Unremarkable. GASTROINTESTINAL TRACT: The small and large bowel are unremarkable. The appendix is unremarkable. ABDOMINAL WALL: Small fat-containing right inguinal hernia. LYMPH NODES: Normal. VASCULAR: Unremarkable. PELVIC VISCERA: The prostate and seminal vesicles are unremarkable. OSSEOUS STRUCTURES: No acute or suspicious osseous abnormality. CT/CT abdomen pelvis wo IV con IMPRESSION: No acute findings in the abdomen or pelvis. No inflammatory changes. Fleischner guidelines were followed.
[2022-07-20 02:49] VITALS: BP 121/83; PULSE 86; RESP 18; TEMP 36.6; O2SAT 96; BMI 24.4
[2022-07-20 03:03] LABS: MANUAL DIFF FLAG NO
[2022-07-20 03:04] LABS: Basophils Percent Auto 0.5 % (0-2); Eosinophils Absolute Auto 0.1 X10*3/uL (0.0-0.4); Eosinophils Percent Auto 1.4 % (0-4); Hematocrit 43.3 % (42.0-52.0); Hemoglobin 15.2 g/dl (14.0-18.0); Imm Gran Abs Auto 0.02 X10*3/uL (0.00-0.03); Imm Gran Pct Auto 0.2 % (0.0-0.4); Lymphocytes Absolute Auto 2.7 X10*3/uL (1.2-4.9); Lymphocytes Percent Auto 31.4 % (20-40); Mean Corpuscular HGB Conc 35.1 g/dl (31.0-36.0); Mean Corpuscular Volume 88.4 fL (80.0-98.0); Mean Platelet Volume 9.9 fL (9.4-12.4); Monocytes Absolute Auto 0.7 X10*3/uL (0.1-1.2); Monocytes Percent Auto 7.7 % (2-11); Neutrophils Absolute Auto 5.1 x10*3/uL (2.0-8.3); Neutrophils Percent Auto 58.8 % (45-73); Platelet Count 337 X10*3/uL (160-400); Red Cell Distribution Width 12.1 % (11.0-16.0); White Blood Count 8.6 X10*3/uL (4.8-10.8)
[2022-07-20 03:19] VITALS: BP 118/82; PULSE 73; RESP 17; TEMP 37.1; O2SAT 97
[2022-07-20 03:19] LABS: Anion Gap 14 (12-20); Blood Urea Nitrogen 9 mg/dL (9-16); Calcium 9.7 mg/dL (8.4-10.2); Carbon Dioxide 25 mmol/L (22-29); Chloride 106 mmol/L (96-108); Creatinine Clr Calc Pharmacy 85.4; Estimated Glomerular Filt Rate > 60; Glucose Random 107 mg/dL (60-115); Potassium 4.3 mmol/L (3.3-5.1); Sodium 141 mmol/L (135-145)
[2022-07-20 03:24] LABS: Appearance Urine Clear; Color Urine Yellow; Glucose Urine UA Negative (Negative); Leukocyte Esterase Urine Negative (Negative); Nitrite Urine Negative (Negative); PH 6.5 (5.0-9.0); Urine Blood Negative (Negative); Urine Ketones Negative (Negative); Urine Protein Negative (Neg-Trace)
--- NOTE | 2022-07-20 03:34 | ED_ITS ---
HPI - Abdominal Pain General Chief Complaint: Abdominal Pain Stated Complaint: Kidney Pain? Time Seen by Provider: 07/20/22 03:26 Source: patient Mode of arrival: ambulatory Limitations: no limitations History of Present Illness HPI narrative: Patient comes to the emergency room complaining of several hours of left lower quadrant pain. Patient states the pain radiates towards the back. Denies nausea vomiting or diarrhea, no constipation, no dysuria or hematuria. Related Data Previous Rx's Medication Instructions Recorded omeprazole 40 mg capsule,delayed 40 mg PO DAILY #30 caps 06/13/20 release pantoprazole 40 mg tablet,delayed 40 mg PO DAILY #30 tabs 03/28/22 release (Protonix) sucralfate 1 gram tablet 1 g PO TID #90 tabs 03/28/22 doxycycline hyclate 100 mg tablet 100 mg PO BID 5 days #10 tabs 07/04/22 Allergies Allergy/AdvReac Type Severity Reaction Status Date / Time No Known Allergies Allergy Verified 07/20/22 02:53 Review of Systems Review of Systems Constitutional : No Weight loss, No Fever, No Chills, No Night Sweats, No Fatigue, No Malaise ENT/Mouth : No Hearing loss, No Ear Pain, No Nasal Congestion, No Sinus Pain, No Hoarseness, No sore throat, No Rhinorrhea, No Swallowing Difficulty Eyes: No Eye Pain, No Swelling, No Redness, No Foreign Body, No Discharge, No Vision Changes Cardiovascular : No Chest Pain, No SOB, No Dyspnea on Exertion, No Orthopnea, No Edema, No Palpitations Respiratory : No Cough, No Sputum, No Wheezing, No Smoke Exposure, No Dyspnea Gastrointestinal : No Nausea, No Vomiting, No Diarrhea, No Constipation, complaining of left lower quadrant pain, no melena Genitourinary : no irregular bleeding, No Dysuria, No Urinary Frequency, No Hematuria, No Urinary Incontinence, No Urgency, No Flank Pain, No Urinary Flow Changes, No Hesitancy Musculoskeletal : No joint pain, No Myalgias, No Joint Swelling Skin : No Skin Lesions, No rash Neuro : No Weakness, No Numbness, No Paresthesias, No Loss of Consciousness, No Dizziness, No Headache Psych : No Anxiety/Panic, No Depression, No SI/HI/AH/VH, No Social Issues, Heme/Lymph: No Bruising, No Bleeding,No Lymphadenopathy Endocrine : No Polyuria, No Polydipsia, No Temperature Intolerance [facility] Past Medical History Medical History No known health problems Social History Social History Alcohol intake: never Patient Tobacco Use Status: Current everyday Tobacco user Smoked in Last 30 Days: Yes Use of substances other than those prescribed or required for medical reasons: No Substance Use Type: Crack/Cocaine and Hallucinogens Advance Directives: No Advance Directives Information Provided: Yes Physical Exam ED Vital Signs: Vital Signs - 24 hr 07/20/22 02:49 07/20/22 03:19 Temperature 97.8 F 98.8 F Pulse Rate 86 73 Respiratory Rate 18 17 Blood Pressure 121/83 118/82 Pulse Oximetry 96 97 Oxygen Delivery Method Room Air Room Air BMI result Body Mass Index 24.4 Const Other: Appearance: Alert. Oriented X3. No acute distress. Well-appearing Eyes: Pupils equal, round and reactive to light. ENT: Pharynx normal. Neck: Normal inspection. Neck supple. No lymph nodes noted. No crepitus CVS: Normal heart rate and rhythm. Pulses normal. Normal S1 and S2 Respiratory: No respiratory distress. Breath sounds normal. No Wheezing. No rales Abdomen: Soft and nontender. No rigidity. No distention. Skin: Skin warm and dry. Normal skin color. Normal skin turgor. Extremities: No lower extremity edema. No Lacerations. No Rash Neuro: Oriented X 3. No motor deficit. No sensory deficit. Moving all extremities. No slurred speech. CN 2 through 12 grossly intact Psych: calm, cooperative, normal affect Course Course Course Narrative: -patient's labs are completely unremarkable -physical exam is unremarkable -patient is very anxious about the pain, CT scan pending. Medical Decision Making Medical Decision Making [facility] Narrative: -labs unremarkable as well as a CT scan. Differential Diagnosis Differential Diagnoses: The differential diagnosis associated with the presentation includes (Gastritis, diverticulitis, constipation, functional abdominal pain) Lab Data [facility] Lab Attestation statement: I reviewed the patient's lab results. 07/20/22 02:58 07/20/22 02:58 Labs: Lab Results 07/20/22 07/20/22 07/20/22 Range/Units 02:58 02:58 03:19 WBC 8.6 (4.8-10.8) X10*3/uL RBC 4.90 (4.60-5.80) X10*6/uL Hgb 15.2 (14.0-18.0) g/dl Hct 43.3 (42.0-52.0) % MCV 88.4 (80.0-98.0) fL MCH 31.0 (27.0-33.0) pg MCHC 35.1 (31.0-36.0) g/dl RDW 12.1 (11.0-16.0) % Plt Count 337 (160-400) X10*3/uL MPV 9.9 (9.4-12.4) fL Immature Gran % (Auto) 0.2 (0.0-0.4) % Neut % (Auto) 58.8 (45-73) % Lymph % (Auto) 31.4 (20-40) % [place] % (Auto) 7.7 (2-11) % Eos % (Auto) 1.4 (0-4) % Baso % (Auto) 0.5 (0-2) % Lymph # (Auto) 2.7 (1.2-4.9) X10*3/uL [place] # (Auto) 0.7 (0.1-1.2) X10*3/uL Eos # (Auto) 0.1 (0.0-0.4) X10*3/uL Baso # (Auto) 0.0 (0.0-0.2) X10*3/uL Abs Immat Gran (auto) 0.02 (0.00-0.03) X10*3/uL Absolute Neuts (auto) 5.1 (2.0-8.3) x10*3/uL Absolute Nucleated RBC 0.000 (0.0-0.012) X10*3/uL Nucleated RBC % (auto) 0.0 (0.0-0.2) /100WBC Sodium 141 (135-145) mmol/L Potassium 4.3 (3.3-5.1) mmol/L Chloride 106 (96-108) mmol/L Carbon Dioxide 25 (22-29) mmol/L Anion Gap 14 (12-20) BUN 9 (9-16) mg/dL Creatinine 1.04 (0.5-1.4) mg/dL Estim Creat Clear Calc 85.4 Estimated GFR > 60 Random Glucose 107 (60-115) mg/dL Calcium 9.7 (8.4-10.2) mg/dL Urine Color Yellow Urine Appearance Clear Urine pH 6.5 (5.0-9.0) Ur Specific [place] 1.020 (1.005-1.025) Urine Protein Negative (Neg-Trace) mg/dL Urine Glucose (UA) Negative (Negative) mg/dL Urine Ketones Negative (Negative) mg/dL Urine Blood Negative (Negative) Urine Nitrite Negative (Negative) Ur Leukocyte Esterase Negative (Negative) Urine RBC 0-2 (0-2) /HPF Urine WBC 0-5 (0-5) /HPF Ur Squamous Epith Cells 0-2 (0-2) /HPF Urine Bacteria None Seen (None Seen) Hyaline Casts 0-2 (0-2) /LPF Independent Interpretation I performed an independent interpretation of an: CT Scan (My interpretation of CT scan of the abdomen: No acute findings) Radiology Impression Discussion of test interpretation with radiology: I have reviewed the radiologist's reading. Radiologist Impression: FINDINGS: LUNG BASES: Linear left basilar atelectasis. The visualized cardiac structures are unremarkable.? LIVER, GALLBLADDER, AND BILIARY TREE: The liver is normal in size, shape, and attenuation. No focal hepatic lesion or biliary ductal dilatation is present. The gallbladder is contracted with no evidence of radiopaque gallstones, gallbladder wall thickening, or obvious pericholecystic inflammatory changes.? PANCREAS: Unremarkable.? SPLEEN: Unremarkable.? ADRENAL GLANDS: Unremarkable.? KIDNEYS AND URETERS: The kidneys are normal in size, shape, and attenuation. No hydronephrosis, hydroureter, or calculi seen. No perinephric stranding. ? BLADDER: Unremarkable.? GASTROINTESTINAL TRACT: The small and large bowel are unremarkable. The appendix is unremarkable.? ABDOMINAL WALL: Small fat-containing right inguinal hernia.? LYMPH NODES: Normal. VASCULAR: Unremarkable. PELVIC VISCERA: The prostate and seminal vesicles are unremarkable.? OSSEOUS STRUCTURES: No acute or suspicious osseous abnormality.? CT/CT abdomen pelvis wo IV con IMPRESSION: No acute findings in the abdomen or pelvis. No inflammatory changes. ? Fleischner guidelines were followed. Discharge Plan Discharge Clinical Impression: Abdominal pain Patient Disposition: Home, Self-Care Instructions: Abdominal Pain (ED) Additional Instructions: Please follow-up with your primary care physician tomorrow. If you have any worsening or new symptoms, please return to the emergency room or call 911 Prescriptions: No Action omeprazole 40 mg capsule,delayed release(DR/EC) 40 mg PO DAILY Qty: 30 0RF pantoprazole [Protonix] 40 mg tablet,delayed release (DR/EC) 40 mg PO DAILY Qty: 30 2RF sucralfate 1 gram tablet 1 g PO TID Qty: 90 2RF doxycycline hyclate 100 mg tablet 100 mg PO BID 5 Days Qty: 10 0RF
[2022-07-20 03:35] LABS: Bacteria Urine None Seen (None Seen); Hyaline Casts Urine 0-2 /LPF (0-2); RBC Urine 0-2 /HPF (0-2); Squamous Epithelial Cell Urine 0-2 /HPF (0-2); WBC Urine 0-5 /HPF (0-5)
--- NOTE | 2022-07-20 03:52 | PC.NURSE ---
Patient is alert and oriented x3. Patient is afebrile. VSS. Patient complains of achy pain in left abdomen 3/10 on 0-10 pain scale. Pain radiates to back. Patient is anxious about this pain. Labs drawn at triage. Urine specimen collected and sent to [facility] for processing. Dr. Barrow a bedside to assess patient. CT scan w/o contrast ordered by MD. Patient oriented to ED room. Call lopez placed within patient's reach.
== END 2022-07-20 04:29 | disposition home or self-care (01) ==
PROVIDERS: Emergency Provider Emergency Medicine
DX: R10.32 Left lower quadrant pain (principal); R10.2 Pelvic and perineal pain; Z79.899 Other long term (current) drug therapy
CPT/HCPCS: 36415; 74176; 80048; 81001; 85025; 99284

== ENCOUNTER 2023-02-26 12:35 | Emergency (ER) | payer SELFPAY ==
[2023-02-26 13:36] VITALS: BP 150/92; PULSE 68; RESP 17; TEMP 36.5; O2SAT 98; BMI 22.8
--- NOTE | 2023-02-26 13:36 | ED.GENADULT ---
HPI - General Adult General Chief complaint: General Medical Stated complaint: std check Time Seen by Provider: 02/26/23 17:16 Source: patient Mode of arrival: ambulatory Limitations: no limitations History of Present Illness HPI narrative: 37-year-old male presents to ED for STD evaluation. patient states having unprotected sex with his girlfriend 2 days ago after started have symptoms. Patient denies any discharge from [facility] or testicular pain/swelling. Denies any penile lesions. Related Data Previous Rx's Medication Instructions Recorded omeprazole 40 mg capsule,delayed 40 mg PO DAILY #30 caps 06/13/20 release pantoprazole 40 mg tablet,delayed 40 mg PO DAILY #30 tabs 03/28/22 release (Protonix) sucralfate 1 gram tablet 1 g PO TID #90 tabs 03/28/22 doxycycline hyclate 100 mg tablet 100 mg PO BID 5 days #10 tabs 07/04/22 clotrimazole 1 % topical cream 1 appl topical BID 2 weeks #45 02/26/23 grams doxycycline hyclate 100 mg capsule 100 mg PO BID 7 days #14 caps 02/26/23 Allergies Allergy/AdvReac Type Severity Reaction Status Date / Time No Known Allergies Allergy Verified 07/20/22 02:53 Review of Systems Review of Systems: STD evaluation penile irritation. Yes all other systems are reviewed and are negative PMFSH Past Medical History Medical History No known health problems Social History Social History Alcohol intake: never Patient Tobacco Use Status: Current everyday Tobacco user Substance Use Type: Crack/Cocaine and Hallucinogens Advance Directives: No Advance Directives Information Provided: No Physical Exam ED Vital Signs: Vital Signs - 24 hr 02/26/23 17:44 Temperature 99.1 F Pulse Rate 72 Respiratory Rate 16 Blood Pressure 132/90 H Pulse Oximetry 98 Oxygen Delivery Method Room Air BMI result Body Mass Index 22.8 Const General: cooperative, healthy appearing, comfortable, no acute distress, well developed, alert, awake and Physically active Orientation/consciousness: oriented to person, oriented to place, oriented to time and patient oriented x3 HENMT Head: Yes normal to inspection, Yes No palpable skull fracture present, Yes normocephalic and Yes atraumatic Eyes General: appearance normal, both eyes and all related structures Neck Neck: Yes normal visual inspection, Yes full ROM, Yes no lymphadenopathy, Yes no meningeal signs, Yes trachea midline, Yes supple, No anterior neck swelling and No tender Chest Chest palpation & inspection: normal inspection of the chest and normal palpation of entire chest wall Resp Effort & Inspection: normal respiratory effort and able to speak in complete sentences Auscultation: clear to auscultation bilaterally Cardio Jugular venous distension: no JVD Heart sounds: S1 normal heart sound present and S2 normal heart sound present GI Inspection: Yes normal to inspection and No abdominal wall ecchymosis Palpation (GI): Soft to palpation, not firm, nontender, no guarding and not rigid Other: mild balanitis. negative phimos General: No CVA tenderness and Yes no CVA tenderness Male General Exam: Yes normal external exam Penis: uncircumcised Meatus: meatus normal and no meatla discharge Scrotum: scrotum normal Testes: Testes normal Back/Spine/Pelvis Back: no CVA tenderness, No CVA tenderness and No back tenderness Skin General skin exam: no rashes or lesions noted, elasticity normal and turgor normal Neuro General: oriented to person, oriented to place, oriented to time, patient oriented x3, gait normal, tone normal, moves all extremities, Normal light touch and pain sensation, no meningeal signs, no focal motor deficits, CN's II-XI intact bilaterally and normal sensation to monofilament Extrem General: Yes normal to inspection and Yes full ROM Course Course Course Narrative: RME performed by Tania Zavaleta PA-C. Patient is a 37 year old assigned male at presenting to the emergency department requesting STI testing. Labs ordered. Patient placed back in the waiting room pending room availability and results. Medications Administered Discontinued Medications Generic Name Dose Route Start Last Admin Trade Name Freq PRN Reason Stop Dose Admin Ceftriaxone Sodium 500 mg/ 0 mg 02/26/23 13:38 02/26/23 17:52 Lidocaine HCl 1 ml IM 02/26/23 13:39 1 kit ONCE ONE Administration Medical Decision Making Medical Decision Making MDM Narrative: 37-year-old male presents to the ED for penile irritation after having unprotected sex with girlfriend. Patient denies any penile lesions or discharge. Patient denies any testicular pain. Patient states no history of STD. Patient given ceftriaxone as prophylactic. Will be discharged with doxycycline. Also patient has mild balanitis. Patient uncircumcised. negative for any penile lesions Differential Diagnosis Differential Diagnoses: The differential diagnosis associated with the presentation includes ( herpes, gonorrhea, chlamydia, syphilis) Lab Data MDM Lab Attestation statement: I reviewed the patient's lab results. Labs: Lab Results 02/26/23 02/26/23 Range/Units 16:59 18:03 Urine Color Yellow Urine Appearance Clear Urine pH 6.0 (5.0-9.0) Ur Specific [place] 1.010 (1.005-1.025) Urine Protein Negative (Neg-Trace) mg/dL Urine Glucose (UA) Negative (Negative) mg/dL Urine Ketones 15 (Negative) mg/dL Urine Blood Negative (Negative) Urine Nitrite Negative (Negative) Ur Leukocyte Esterase Small (1+) H (Negative) Urine RBC 0-2 (0-2) /HPF Urine WBC 0-5 (0-5) /HPF Ur Squamous Epith Cells 0-2 (0-2) /HPF Urine Bacteria None Seen (None Seen) Hyaline Casts 0-2 (0-2) /LPF Chlam trachomat DNA PCR NOT DETECTED (Not Detect.) N.gonorrhoeae DNA (PCR) NOT DETECTED (Not Detect.) External Record Review External record reviewed: Other (Prior ED visist) Prescription Management I considered prescription management with: Antibiotic Discharge Plan Discharge Clinical Impression: Balanitis, Dysuria Patient Disposition: Home, Self-Care Instructions: Balanitis (ED), Dysuria (ED) Additional Instructions: you will be discharged with antibiotics and cream. Please follow-up in primary care provider. Return to ED for any penile discharge, testicular pain, swelling, inability to retract foreskin, penile lesions, abdominal pain, nausea, vomiting, fever, chills, flank pain, or any other concerning symptoms. Prescriptions: New doxycycline hyclate 100 mg capsule 100 mg PO BID 7 Days Qty: 14 0RF clotrimazole 1 % cream 1 appl topical BID 14 Days Qty: 45 0RF No Action omeprazole 40 mg capsule,delayed release(DR/EC) 40 mg PO DAILY Qty: 30 0RF pantoprazole [Protonix] 40 mg tablet,delayed release (DR/EC) 40 mg PO DAILY Qty: 30 2RF sucralfate 1 gram tablet 1 g PO TID Qty: 90 2RF doxycycline hyclate 100 mg tablet 100 mg PO BID 5 Days Qty: 10 0RF Interventions: ED Discharge Assessment Last Done: 02/26/23 18:49 Discharge Date/Time: 02/26/23 18:49 Print Language: [place]
[2023-02-26 17:44] VITALS: BP 132/90; PULSE 72; RESP 16; TEMP 37.3; O2SAT 98
[2023-02-26] MEDS: cefTRIAXone sodium 500 MG, Lidocaine HCl 1 % MPF 1 ML IM (17:52)
[2023-02-26 18:14] LABS: Appearance Urine Clear; Color Urine Yellow; Glucose Urine UA Negative (Negative); Leukocyte Esterase Urine Small (1+) (Negative); Nitrite Urine Negative (Negative); UMIC TRIGGER UACC YES; Urine Blood Negative (Negative); Urine Ketones 15 mg/dL (Negative); Urine Protein Negative (Neg-Trace)
[2023-02-26 18:21] LABS: Bacteria Urine None Seen (None Seen); Hyaline Casts Urine 0-2 /LPF (0-2); RBC Urine 0-2 /HPF (0-2); Squamous Epithelial Cell Urine 0-2 /HPF (0-2); UACC Culture Trigger YES; WBC Urine 0-5 /HPF (0-5)
[2023-02-26 18:51] LABS: CT PCR NOT DETECTED (Not Detect.); NG PCR NOT DETECTED (Not Detect.)
== END 2023-02-26 18:49 | disposition home or self-care (01) ==
PROVIDERS: Physician Assistant; Physician Assistant Medical; Emergency Provider Emergency Medicine
DX: N48.1 Balanitis (principal); R30.0 Dysuria; Z20.2 Contact with and (suspected) exposure to infections with a predominantly sexual mode of transmission; F17.200 Nicotine dependence, unspecified, uncomplicated
CPT/HCPCS: 0353U; 81001; 87086; 87147; 96372; 99283; 99284; J0696

== ENCOUNTER 2023-05-27 22:03 | Emergency (ER) | payer MEDICAID, SELFPAY ==
--- NOTE | 2023-05-27 22:09 | ED.OVERDOSE ---
HPI - Overdose General Chief Complaint: ETOH/Substance Use Stated Complaint: ETOH Time Seen by Provider: 05/27/23 22:08 Source: patient and EMS Mode of arrival: EMS Limitations: no limitations History of Present Illness HPI Narrative: Patient apparently was using PCP was in house loud distracting family who called EMS, patient came on arrival patient is calm and cooperative, resting in the ER Related Data Previous Rx's Medication Instructions Recorded omeprazole 40 mg capsule,delayed 40 mg PO DAILY #30 caps 06/13/20 release pantoprazole 40 mg tablet,delayed 40 mg PO DAILY #30 tabs 03/28/22 release (Protonix) sucralfate 1 gram tablet 1 g PO TID #90 tabs 03/28/22 doxycycline hyclate 100 mg tablet 100 mg PO BID 5 days #10 tabs 07/04/22 clotrimazole 1 % topical cream 1 appl topical BID 2 weeks #45 02/26/23 grams doxycycline hyclate 100 mg capsule 100 mg PO BID 7 days #14 caps 02/26/23 Allergies Allergy/AdvReac Type Severity Reaction Status Date / Time No Known Allergies Allergy Verified 05/27/23 22:17 Review of Systems Review of Systems: Yes all other systems are reviewed and are negative PMFSH Past Medical History Medical History No known health problems Social History Social History Alcohol intake: never Patient Tobacco Use Status: Current everyday Tobacco user Substance Use Type: Crack/Cocaine and Hallucinogens Advance Directives: No Advance Directives Information Provided: No Physical Exam Vital Signs: Vital Signs: Last Vital Signs Temp 98.6 F 05/27/23 22:17 Pulse 119 H 05/27/23 22:17 Resp 18 05/27/23 22:17 BP 134/97 H 05/27/23 22:17 Pulse Ox 96 05/27/23 22:17 O2 Del Method Room Air 05/27/23 22:17 BMI result Body Mass Index 25.7 Appearance: Alert. Oriented X3. No acute distress. Eyes: PERRLA, No Nystagmus ENT: Pharynx normal. Oral Mucosa moist Neck: Normal inspection. Neck supple. CVS: Normal heart rate and rhythm. Pulses normal. Respiratory: No respiratory distress. Equal air entry bilateral, no wheezing/rales/rhonchi Abdomen: Soft and nontender. Bowel sounds are present, no mass palpable, no CVA tenderness Skin: Skin warm and dry. Normal skin color. Normal skin turgor. Extremities: No lower extremity edema. No calf tenderness Neuro: Oriented X 3. No motor deficit. No sensory deficit.No cerebellar signs , cranial nerves II-XII intact Medical Decision Making Medical Decision Making MDM Narrative: Patient with PCP/alcohol abuse walking steady gait does not want to stay in the ER was loud but cooperative denies any visual or auditory hallucination discharge patient home follow-up with detox Discharge Plan Discharge Clinical Impression: PCP (phencyclidine) abuse Patient Disposition: Home, Self-Care Instructions: Polysubstance Abuse (ED) Additional Instructions: Stop using alcohol and PCP Prescriptions: No Action omeprazole 40 mg capsule,delayed release(DR/EC) 40 mg PO DAILY Qty: 30 0RF pantoprazole [Protonix] 40 mg tablet,delayed release (DR/EC) 40 mg PO DAILY Qty: 30 2RF sucralfate 1 gram tablet 1 g PO TID Qty: 90 2RF doxycycline hyclate 100 mg tablet 100 mg PO BID 5 Days Qty: 10 0RF doxycycline hyclate 100 mg capsule 100 mg PO BID 7 Days Qty: 14 0RF clotrimazole 1 % cream 1 appl topical BID 14 Days Qty: 45 0RF
[2023-05-27 22:17] VITALS: BP 134/97; BP 152/94; PULSE 119; PULSE 120; RESP 18; TEMP 37; O2SAT 96; O2SAT 98; BMI 25.7
== END 2023-05-28 04:02 | disposition home or self-care (01) ==
LOC: HO.ED 23:02
PROVIDERS: Emergency Provider Internal Medicine
DX: F16.10 Hallucinogen abuse, uncomplicated (principal)
CPT/HCPCS: 99281

== ENCOUNTER 2023-06-08 16:00 | Emergency (ER) | payer MEDICAID, SELFPAY ==
[2023-06-08 16:44] VITALS: BP 129/87; PULSE 96; RESP 18; TEMP 36.9; O2SAT 97; BMI 24.0
== END 2023-06-08 20:17 | disposition left against medical advice (07) ==
PROVIDERS: Emergency Provider Emergency Medicine
DX: H91.92 Unspecified hearing loss, left ear (principal)
CPT/HCPCS: 99281